=== PATIENT | female | born 1955 | race Caucasian/White ===

== ENCOUNTER 2020-08-14 08:00 | Emergency (ER) | payer BC ==
--- NOTE | 2020-08-14 08:16 | ED Physician Documentation ---
PD HPI CHEST PAIN - Stated complaint Stated Complaint: CHEST PX - Chief complaint Chief Complaint: Cardiac - History obtained from History obtained from: Patient - History of Present Illness Timing - onset: How many hours ago (1), Today (onset at about 6:30 am while in bed of abrupt pleuritic right chest pain lateral to and deep to right breast. No breast tenderness. Some chest wall tenderness lateral to breast. No abd pain. Left chest without pain.) Timing - onset during: Sleep (awoke from sleep with pain right chest lateral breast area, worse with palpation in the area and with deep breathing. No noted injury. [place] okay yesterday.) Timing - duration: Hours (1) Timing - details: Abrupt onset, Still present Quality: Aching, Sharp, Pain. No: Pressure, Tightness Location: Right chest Radiation: No: Jaw, Neck, Back Improved by: Rest Worsened by: Inspiration, Palpation. No: Movement Associated symptoms: Shortness of air. No: Nausea, Vomiting, Feeling faint / dizzy, Palpitations Similar symptoms before: Has not had sx before Recently seen: Surgery (gastric sleeve bariatric surgery 3 months ago without complications.), Not recently seen Review of Systems Constitutional: denies: Fever, Chills Nose: denies: Rhinorrhea / runny nose, Congestion Throat: denies: Sore throat Cardiac: reports: Chest pain / pressure. denies: Palpitations, Pedal edema, Calf pain Respiratory: reports: Dyspnea. denies: Cough, Wheezing GI: denies: Abdominal Pain, Nausea, Vomiting Skin: denies: Rash, Lesions Musculoskeletal: denies: Back pain PD PAST MEDICAL HISTORY - Past Medical History Cardiovascular: High cholesterol Respiratory: None Neuro: None Endocrine/Autoimmune: None GI: Other (gastric sleeve) - Past Surgical History General: Gastric surgery (gastric sleeve 3 months ago) - Present Medications Home Medications: Ambulatory Orders Medication Instructions Recorded Confirmed Hydrocodone/Acetaminophen [[place] 1 each PO Q6H PRN #15 tablet 08/14/20 5-325 Tablet] - Allergies Allergies/Adverse Reactions: Allergies Allergy/AdvReac Type Severity Reaction Status Date / Time No Known Drug Allergies Allergy Verified 08/14/20 08:51 PD ED PE NORMAL - Vitals Vital signs reviewed: Yes - General General: Alert and oriented X 3, No acute distress (seems okay rested, winces with some deep breathing. ), Well developed/nourished - HEENT HEENT: Pharynx benign - Neck Neck: Supple, no meningeal sign, No adenopathy - Cardiac Cardiac: RRR, No murmur - Respiratory Respiratory: Clear bilaterally, Other (no breast tissue tenderness nor redness. Focal tenderness of chest wall at ribs just lateral to breast. No sores. ) - Abdomen Abdomen: Soft, Non tender - Derm Derm: Normal color, Warm and dry, No rash - Extremities Extremities: No tenderness to palpate, Normal ROM s pain, No edema, No calf tenderness / cord - Neuro Neuro: Alert and oriented X 3, No motor deficit, Normal speech Results - Vitals Vitals: Vital Signs - 24 hr 08/14/20 08/14/20 08/14/20 08:05 08:33 09:04 Temperature 36.8 C 36.8 C Heart Rate 72 72 69 Respiratory 16 16 12 Rate Blood Pressure 165/88 H 165/88 H 167/94 H O2 Saturation 99 99 98 08/14/20 08/14/20 08/14/20 09:25 09:51 10:31 Temperature Heart Rate 66 66 65 Respiratory 14 21 18 Rate Blood Pressure 162/68 H 170/76 H 154/78 H O2 Saturation 100 100 99 Oxygen O2 Source Room air - EKG (time done) 08:07 Rate: Rate (enter#) (75) Rhythm: NSR [place]: Normal Intervals: Normal PA QRS: Normal Ischemia: Normal ST segments. No: ST elevation c/w ischemia, ST depression - Labs Labs: Laboratory Tests 08/14/20 08/14/20 08/14/20 08:20 08:20 08:20 WBC 6.5 RBC 4.29 Hgb 13.9 Hct 41.8 MCV 97.4 MCH 32.4 H MCHC 33.3 RDW 13.2 Plt Count 191 MPV 11.7 H Neut # (Auto) 3.2 Lymph # (Auto) 2.5 [place] # (Auto) 0.6 Eos # (Auto) 0.2 Baso # (Auto) 0.1 Absolute Nucleated RBC 0.00 Nucleated RBC % 0.0 D-Dimer < 200.0 L Sodium 141 Potassium 4.0 Chloride 107 Carbon Dioxide 23 Anion Gap 11.0 BUN 12 Creatinine 0.5 Estimated GFR (MDRD) 123 Glucose 102 H Calcium 9.1 Total Bilirubin 0.6 AST 16 ALT 18 Alkaline Phosphatase 86 Troponin I High Sens Total Protein 7.1 Albumin 3.8 Globulin 3.3 Albumin/Globulin Ratio 1.2 Lipase 30 08/14/20 08/14/20 08:20 10:10 WBC RBC Hgb Hct MCV MCH MCHC RDW Plt Count MPV Neut # (Auto) Lymph # (Auto) [place] # (Auto) Eos # (Auto) Baso # (Auto) Absolute Nucleated RBC Nucleated RBC % D-Dimer Sodium Potassium Chloride Carbon Dioxide Anion Gap BUN Creatinine Estimated GFR (MDRD) Glucose Calcium Total Bilirubin AST ALT Alkaline Phosphatase Troponin I High Sens 4.3 3.3 Total Protein Albumin Globulin Albumin/Globulin Ratio Lipase - Rads (name of study) chest xray Radiology: Prelim report reviewed (normal), See rad report PD MEDICAL DECISION MAKING - ED course Complexity details: reviewed results, re-evaluated patient (she is feeling much better, almost gone with just Toradol. Declined Morphine. Tests are negative, so excludes significant cause of symptoms. ), considered differential (seems likely musculoskeletal with some palpable tenderness right chestwall, and with inspiration. No pain with sholder movement per se. She is 65 and with gastric sleeve surgery 3 months ago. PERC score 2, So will get d-dimer as well with low pretest probability. ), d/w patient Departure - Departure Disposition: 01 Home, Self Care Clinical Impression: Right-sided chest pain Clinical Impression: (Ruled Out): Myocardial infarction Condition: Stable Record reviewed to determine appropriate education?: Yes Instructions: ED Strain Chest Wall Follow-Up: JOSÉ MIGUEL CRUZ MD [Primary Care Provider] - Prescriptions: Hydrocodone/Acetaminophen [[place] 5-325 Tablet] 1 each PO Q6H PRN #15 tablet PRN Reason: Pain Comments: Ends of serious cause of your pain. Presume musculoskeletal at this point. I would suggest some anti-inflammatory such as ibuprofen or naproxen 2-3 times a day for the next few days and add Tylenol if needed for pain. I wrote a prescription for stronger pain medicine should it continue to hurt enough. I would anticipate improvement over the next few days and resolution within 3 to 5 days. Sooner than that is even better. Recheck if other symptoms develop over the next several days or if not improved over the next 2-3 days. Discharge Date/Time: 08/14/20 11:02
[2020-08-14] MEDS ORDERED: MORPHINE 10 MG/ML VIAL IVP STA (08:48)
[2020-08-14] MEDS ORDERED: KETOROLAC 30 MG/ML VIAL IVP STA (08:48)
[2020-08-14 08:56] LABS: BASOPHILS # (AUTO) 0.1 10^3/uL (0.0-0.1); BASOPHILS % (AUTO) 0.8 %; EOSINOPHILS # (AUTO) 0.2 10^3/uL (0.0-0.7); EOSINOPHILS % (AUTO) 3.1 %; HGB - HEMOGLOBIN 13.9 g/dL (12.0-16.0); LYMPHOCYTES # (AUTO) 2.5 10^3/uL (1.5-3.5); LYMPHOCYTES % (AUTO) 37.9 %; MEAN CORPUSCULAR HEMOGLOBIN 32.4 pg (27.0-31.0); MEAN CORPUSCULAR HGB CONC 33.3 g/dL (32.0-36.0); MEAN CORPUSCULAR VOLUME 97.4 fL (81.0-99.0); MEAN PLATELET VOLUME 11.7 fL (7.9-10.8); MONOCYTES # (AUTO) 0.6 10^3/uL (0.0-1.0); NEUTROPHILS # (AUTO) 3.2 10^3/uL (1.5-6.6); NEUTROPHILS % (AUTO) 48.9 %; PLT - PLATELET COUNT 191 10^3/uL (130-450); RED BLOOD COUNT 4.29 10^6/uL (4.20-5.40); RED CELL DISTRIBUTION WIDTH 13.2 % (12.0-15.0); WHITE BLOOD COUNT 6.5 x10^3/uL (4.8-10.8)
[2020-08-14 09:06] LABS: ALBUMIN 3.8 g/dL (3.2-5.5); ALBUMIN/GLOBULIN RATIO 1.2 (1.0-2.2); BILIRUBIN,TOTAL 0.6 mg/dL (0.2-1.0); CALCIUM 9.1 mg/dL (8.5-10.3); CREATININE 0.5 mg/dL (0.4-1.0); TOTAL PROTEIN 7.1 g/dL (6.7-8.2)
--- NOTE | 2020-08-14 09:26 | XRAY Report ---
PROCEDURE: Chest 1 View X-Ray INDICATIONS: Chest Pain TECHNIQUE: One view of the chest was acquired. COMPARISON: None FINDINGS: Surgical changes and devices: None. Lungs and pleura: No pleural effusions or pneumothorax. Lungs are clear. Mediastinum: Mediastinal contours appear normal. Heart size is normal. Bones and chest wall: No suspicious bony lesions. Age-appropriate degenerative changes are seen. Overlying soft tissues appear unremarkable. IMPRESSION: Unremarkable portable chest for age. Reviewed by: Bhavesh Ramirez MD on 08/14/2020 8:25 AM [place] Approved by: Bhavesh Ramirez MD on 08/14/2020 8:25 AM [place] Station ID: [id number]
[2020-08-14 10:34] VITALS: BP 154/78
[2020-08-14] MEDS ORDERED: ACETAMINOPHEN 325 MG TABLET PO STA (10:36)
== END 2020-08-14 11:02 | disposition home or self-care (01) ==
LOC: ED 08:00
DX: R07.9 Chest pain, unspecified (principal); Z98.84 Bariatric surgery status
CPT/HCPCS: 36415; 71045; 80053; 83690; 84484; 85025; 85379; 93005; 96374; 99284; A9270